=== PATIENT | female | born 1975 | race Two or more races ===

== ENCOUNTER 2024-09-23 00:48 | Emergency (ER) | payer MEDICAID, SELFPAY ==
[2024-09-23 00:54] VITALS: PULSE 96; RESP 18; O2SAT 96
--- NOTE | 2024-09-23 00:58 | PC.NURSE ---
[facility] HERE TO TALK TO PT.
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
[2024-09-23 05:06] VITALS: BP 140/88; PULSE 74; RESP 18; TEMP 36.9; O2SAT 99
== END 2024-09-23 05:09 | disposition left against medical advice (07) ==
PROVIDERS: Emergency Provider Emergency Medicine
DX: S06.0X0A Concussion without loss of consciousness, initial encounter (principal); S05.12XA Contusion of eyeball and orbital tissues, left eye, initial encounter; Y04.0XXA Assault by unarmed brawl or fight, initial encounter; Z53.29 Procedure and treatment not carried out because of patient's decision for other reasons
CPT/HCPCS: 70450; 70480; 99281